=== PATIENT | female | born 1945 | race Caucasian/White ===

== ENCOUNTER 2024-03-23 18:13 | Emergency (ER) | payer OTHER ==
[2024-03-23] MEDS ORDERED: Boostrix 0.5 ML (Tdap) VIAL (>/=7 yrs of age) ONE (19:56)
[2024-03-23] MEDS ORDERED: Lidocaine 1% PF 5 ML VIAL ONE ×2 (20:08)
== END 2024-03-23 21:08 | disposition home or self-care (01) ==
LOC: ERS 18:13
DX: S61.217A Laceration without foreign body of left little finger without damage to nail, initial encounter (principal); E11.9 Type 2 diabetes mellitus without complications; I10 Essential (primary) hypertension; Z85.3 Personal history of malignant neoplasm of breast; W22.8XXA Striking against or struck by other objects, initial encounter
CPT/HCPCS: 90471; 90715